=== PATIENT | male | born 1995 | race Caucasian/White ===

== ENCOUNTER 2016-09-20 17:43 | Emergency (ER) | payer SELFPAY ==
[2016-09-20 19:05] VITALS: BP 127/60; PULSE 60; TEMP 98.2; BMI 24.6
[2016-09-20] MEDS ORDERED: ALBUTEROL 6.7 GM MDI INH ONE (19:26)
--- NOTE | 2016-09-20 19:28 | EDPRACDOC ---
- General Information Stated Complaint: INHALER REFILL Time Seen by Provider: 09/20/16 19:24 Information Source: Patient Home Medications: Home Medications Albuterol Sulfate [Proair Hfa] 2 puff INH Q4H PRN 08/26/15 Albuterol Sulfate [Proventil Hfa] 2 puff INH Q4H PRN #1 inh 04/24/16 Oxycodone Immediate Release [Oxycodone Immediate Release (OxyIR)] 5 mg PO Q6H PRN #30 tab 06/15/16 Albuterol Sulfate MDI [Proventil HFA] 2 puff INH Q4-6H PRN #1 inhaler 09/20/16 Allergies/Adverse Reactions: Allergies Allergy/AdvReac Type Severity Reaction Status Date / Time No Known Allergies Allergy Verified 04/24/16 07:43 - History of Present Illness Onset: 2-3 hours HPI: Pt states hx asthma and began having wheezing 2-3 hours ago. C/o non productive cough. Denies fever, earache, sore throat, cp, abd pain, n/v/d, rash. Pt states out of his inhaler. Shortness of Breath: Mild Relevant History: Reports: Asthma Cough: Reports: Non-productive Rhinorrhea: Reports: None Ear Symptoms: Reports: None SOB Worsens with: Reports: Movement SOB Improves with: Reports: Nothing Associated Signs and symptoms: Reports: Cough ED Past Medical History - History Reviewed Yes Nurses notes reviewed and agree except as marked - Patient Medical History Respiratory History: Reports: Asthma Psychological History: Reports: Depression - Social Medical History Smoking Status: Heavy tobacco smoker (5 or more cigarettes/day or daily pipe/ cigar) ETOH: None Substance Abuse: None EDM Review of Systems - Review of Systems Constitutional: No Symptoms Reported. negative: Fever, Chills, Weakness, Fatigue, Loss of Appetite Ears: No Symptoms Reported. negative: Pain, Hearing Loss, Drainage, Ear Pulling Throat: No Symptoms Reported. negative: Pain, Swelling Nose: No Symptoms Reported. negative: Congestion, Bleeding, Discharge, Injection, Swelling, Deformity, Ecchymosis, Tender, Abrasion, Laceration Mouth: No Symptoms Reported. negative: Pain, Drooling Respiratory: Cough, Wheezing Cardiovascular: No Symptoms Reported. negative: Chest Pain, Palpitations, Syncope, Edema, Orthopnea, PND, Skin Mottling, Cyanosis Gastrointestinal: No Symptoms Reported. negative: Pain, Constipation, Nausea, Vomiting, Diarrhea, Melena, Formula Intolerance Genitourinary: No Symptoms Reported. negative: Dysuria, Hematuria, Frequency, Discharge, Bleeding, Testicular Pain, Neurological: No Symptoms Reported. negative: Headache, Dizziness, Seizure, Numbness, Weakness, Speech Difficulty, Gait Difficulty Musculoskeletal: No Symptoms Reported. negative: Neck, Chestwall, Ribs, Back, Shoulder, Arm, Elbow, Forearm, Wrist, Hand, Pelvis, Hip, Femur, Knee, Leg, Ankle , Foot Integumentary: No Symptoms Reported. negative: Itching, Rash, Bruising, Wound Allergic/Immunologic: No Symptoms Reported. negative: Hives, Itching Hematologic: No Symptoms Reported. negative: Lymphadenopathy, Easy Bruising, Easy Bleeding Psychiatric: No Symptoms Reported. negative: Anxiety, Depression, Hallucinations, Insomnia, Suicidal - Physical Exam Constitutional: Alert Oriented to: Time, Person, Place Last recorded Vital Signs: Last Vital Signs Temp 98.2 F 09/20/16 19:05 Pulse 60 09/20/16 19:05 Resp 20 09/20/16 19:05 BP 127/60 09/20/16 19:05 Pulse Ox 98 09/20/16 19:05 Oxygen Pulse Oxygen Saturation 98 O2 Device Room Air Oxygen Flow Rate Fraction of Inspired Oxygen ( FIO2) - HEENT Head: Normal ( normocephalic) Eye Exam: Normal (PERRL, EOMI, Sclera white) Oropharynx: Normal (Pharynx:Moist without exudate,Gums-no swelling) Tympanic Membrane: Normal ENT EAC: Normal Nose: No Symptoms Reported (septum midline) Neck: Normal (FROM, trachea at midline) - Respiratory/Cardiovascular Respiratory: Wheezes Cardiovascular: Normal (RRR without murmur, gallop or rub) - Integumentary Skin: Normal, Warm, Dry Lymphatics: Normal (no adenopathy) - Neurologic Memory Impaired: Normal Motor Function: Normal (Normal tone, Pulses 2+ No cyanosis or edema, FROM) Mood Description: Normal Perception: Normal ED SOB MDM - Differential Diagnosis Differential Diagnosis: Asthma, URI Decision Time to Discharge: 19:29 - Departure Disposition: Home Condition: Good Final Diagnosis: Medication refill, Acute asthma Instructions: Asthma (ED) Education/Counseling Given To: Patient Education/Counseling Given Regarding: Diagnosis, Treatment, Follow Up Referrals: Thai Beaulieu MD [Primary Care Provider] - One Week Prescriptions: New Albuterol Sulfate MDI [Proventil HFA] 2 puff INH Q4-6H PRN #1 inhaler PRN Reason: Shortness Of Breath No Action Albuterol Sulfate [Proair Hfa] 2 puff INH Q4H PRN PRN Reason: Shortness Of Breath Albuterol Sulfate [Proventil Hfa] 2 puff INH Q4H PRN #1 inh PRN Reason: Shortness Of Breath Oxycodone Immediate Release [Oxycodone Immediate Release (OxyIR)] 5 mg PO Q6H PRN #30 tab PRN Reason: Pain Additional Instructions: Return for worse or different symptoms.
== END 2016-09-20 19:48 | disposition home or self-care (01) ==
LOC: ED 17:43 → EDMC 19:48
DX: J45.909 Unspecified asthma, uncomplicated (principal)
CPT/HCPCS: 94640; 99282; J3490